=== PATIENT | male | born 1955 | race African-American/Black ===

== ENCOUNTER 2017-08-04 05:19 | Inpatient (IN) | payer OTHER ==
[~2017-08-04] VITALS: Ht 167.6 cm; Wt 81.6 kg
[2017-08-04] MEDS ORDERED: Sodium Chloride 500ML 500 ML IV ONE (05:38)
[2017-08-04 05:45] LABS: BASOPHILS % (AUTO) 0.5 % (0.0-2.0); EOSINOPHILS % (AUTO) 2.3 % (0.0-3.0); HEMATOCRIT 44.6 % (42.0-52.0); HEMOGLOBIN 14.9 G/DL (14.2-18.0); LYMPHOCYTES % (AUTO) 20.1 % (20.0-45.0); MEAN CORPUSCULAR VOLUME 87 FL (80-99); MONOCYTES % (AUTO) 10.5 % (1.0-10.0); NEUTROPHILS % (AUTO) 66.7 % (45.0-75.0); PLATELET COUNT 186 K/UL (150-450); RED BLOOD COUNT 5.11 M/UL (4.70-6.10); RED CELL DISTRIBUTION WIDTH 13.1 % (11.6-14.8); WHITE BLOOD COUNT 6.9 K/UL (4.8-10.8)
[2017-08-04] MEDS ORDERED: Morphine Sulfate 4mg/ml Inj IVP ONE (05:45)
[2017-08-04 05:50] VITALS: BP 134/81
[2017-08-04 05:54] LABS: INR 1.2 (0.9-1.1)
[2017-08-04] MEDS ORDERED: Dicyclomine HCl 10mg/5ml oral soln ORAL ONE (06:00)
[2017-08-04] MEDS ORDERED: Mylanta II UD 30ml ORAL ONE (06:00)
[2017-08-04] MEDS ORDERED: Lidocaine 2% Visc 15ml soln ORAL ONE (06:00)
--- NOTE | 2017-08-04 06:05 | Emergency Room Report ---
History of Present Illness General Chief Complaint: Abdominal Pain Source: Patient (SHANTI DUMAS M.D.) Present Illness HPI 61-year-old male presents ED complaining of abdominal pain times one week. States pain is lower, sharp, 7/10, nonradiating. Also complaining of blood in his stool. Denies chest pain or shortness of breath. Denies fevers or chills. Denies nausea or vomiting. Patient states approximately one month ago he had a endoscopy performed at [facility]. was told that he had a "infection" and was prescribed medications. patient takes aspirin but denies taking any other blood thinners. No other aggravating relieving factors. Denies any other associated symptoms (SHANTI DUMAS M.D.) Allergies: Coded Allergies: BENAZEPRIL (Verified Allergy, Unknown, 08/04/17) LEVOFLOXACIN (Verified Allergy, Unknown, 08/04/17) Patient History Past Medical History: HTN, CHF Past Surgical History: pacemaker Pertinent Family History: none Social History: Denies: smoking, alcohol use, drug use Immunizations: UTD Reviewed Nursing Documentation: PMH: Agreed, PSxH: Agreed (SHANTI DUMAS M.D.) Nursing Documentation-PMH Past Medical History: No History, Except For Hx Cardiac Problems: Yes - CHF Hx Hypertension: Yes Hx Pacemaker: Yes Hx Diabetes: Yes (SHANTI DUMAS M.D.) Review of Systems All Other Systems: negative except mentioned in HPI (SHANTI DUMAS M.D.) Physical Exam Vital Signs Date Time Temp Pulse Resp B/P (MAP) Pulse Ox O2 Delivery O2 Flow Rate FiO2 08/04/17 05:13 99.0 83 16 134/81 99 Room Air Sp02 EP Interpretation: reviewed, normal General Appearance: no apparent distress, alert, GCS 15, non-toxic Head: normocephalic, atraumatic Eyes: bilateral eye normal inspection, bilateral eye PERRL ENT: hearing grossly normal, normal pharynx, no angioedema, normal voice Neck: full range of motion, supple/symm/no masses Respiratory: chest non-tender, lungs clear, normal breath sounds, speaking full sentences Cardiovascular #1: regular rate, rhythm, no edema Cardiovascular #2: 2+ carotid (R), 2+ carotid (L), 2+ radial (R), 2+ radial (L) , 2+ dorsalis pedis (R), 2+ dorsalis pedis (L) Gastrointestinal: normal bowel sounds, soft, non-distended, no guarding, no rebound, tenderness Rectal: deferred Genitourinary: normal inspection, no CVA tenderness Musculoskeletal: back normal, gait/station normal, normal range of motion, non- tender Neurologic: alert, oriented x3, responsive, motor strength/tone normal, sensory intact, speech normal Psychiatric: judgement/insight normal, memory normal, mood/affect normal, no suicidal/homicidal ideation Reflexes: 3+ bicep (R), 3+ bicep (L), 3+ tricep (R), 3+ tricep (L), 3+ knee (R) , 3+ knee (L) Skin: normal color, no rash, warm/dry, well hydrated Lymphatic: no adenopathy (SHANTI DUMAS M.D.) Medical Decision Making Diagnostic Impression: Primary Impression: GI bleed Additional Impression: Abdominal pain ER Course Please defer to the initial note for the history exam and presentation At this time the blood work is appropriate CT imaging shows multiple subacute/acute findings please refer to the report Given the patient's recent procedure given the findings of possible GI bleed Patient is admitted for further inpatient care (ARIAS TAVERAS D.O.) Rhythm Strip Diag. Results EP Interpretation: yes Rate: 78 Rhythm: NSR, no PVC's, no ectopy (ARIAS TAVERAS D.O.) CT/MRI/US Diagnostic Results CT/MRI/US Diagnostic Results : Impression CT abdomen pelvis: Refer to her report for full detail 3 x 2.5 cm complex lesion right kidney mass versus focal pyelonephritis right paranephric stranding no hydronephrosis enlarged prostate diffuse increased burning with relatively decompressed rectosigmoid possible differentials of prostatitis mottled appearance of pelvis consideration for Paget's disease versus metastatic /infiltrative (ARIAS TAVERAS D.O.) Last Vital Signs Date Time Temp Pulse Resp B/P (MAP) Pulse Ox O2 Delivery O2 Flow Rate FiO2 08/04/17 05:13 99.0 83 16 134/81 99 Room Air (SHANTI DUMAS M.D.) Status: improved (ARIAS TAVERAS D.O.) Disposition: ADMITTED INPATIENT Condition: Serious Scripts Unable to Obtain Active Prescriptions or Reported Meds SHANTI DUMAS M.D. Aug 04, 2017 06:05 ARIAS TAVERAS D.O. Aug 04, 2017 08:26
[2017-08-04 06:12] LABS: ANION GAP 5 mmol/L (5-15); BLOOD UREA NITROGEN 18 mg/dL (7-18); CALCIUM 9.7 MG/DL (8.5-10.1); CARBON DIOXIDE 31 MMOL/L (21-32); CHLORIDE 104 MMOL/L (98-107); POTASSIUM 3.4 MMOL/L (3.5-5.1); SODIUM 139 MMOL/L (136-145)
[2017-08-04 06:16] LABS: ALANINE AMINOTRANSFERASE 30 U/L (12-78); ALKALINE PHOSPHATASE 92 U/L (46-116); ASPARTATE AMINO TRANSFERASE 25 U/L (15-37); BILIRUBIN,TOTAL 0.6 MG/DL (0.2-1.0)
[2017-08-04 06:34] LABS: APPEARANCE,URINE CLEAR; BILIRUBIN, URINE NEGATIVE (NEGATIVE); GLUCOSE, URINE (UA) NEGATIVE (NEGATIVE); KETONES,URINE NEGATIVE (NEGATIVE); LEUKOCYTE ESTERASE ,URINE 1+ (NEGATIVE); NITRITE,URINE NEGATIVE (NEGATIVE); PH,URINE 7 (4.5-8.0); PROTEIN,URINE NEGATIVE (NEGATIVE); UROBILINOGEN,URINE NORMAL MG/DL (0.0-1.0)
[2017-08-04 06:48] LABS: COLOR,URINE YELLOW
[2017-08-04 06:50] VITALS: BP 148/76
[2017-08-04 08:07] VITALS: BP 145/70
[2017-08-04] MEDS ORDERED: Zolpidem 5mg tab ORAL PRN (09:00)
[2017-08-04] MEDS ORDERED: Morphine Sulfate 4mg/ml Inj IVP PRN ×2 (09:00)
--- NOTE | 2017-08-04 11:28 | History & Physical ---
History and Physical History & Physicial HP dictated # [id number] JAQUAN BRISENO Aug 04, 2017 11:28
--- NOTE | 2017-08-04 11:31 | Diagnostic Imaging Report ---
Indication: Abdominal pain. Bloody stools. Technique: CT of the abdomen and pelvis utilizing automated exposure control with intravenous contrast. Venous scanning performed. CT dose: Total DLP 808.87 mGycm; CTDI vol 17.93 mGy Comparison: None Findings: Dependent atelectasis noted in the lung bases. There is a 6 mm subpleural nodule in the right lower lobe. Heart size appears within normal limits. Pacemaker partially visualized. Liver, gallbladder, spleen, adrenal glands and pancreas are grossly unremarkable. There is a 3 x 2.5 cm complex lesion in the right kidney which contains low in intermediate attenuation components. There is right perinephric stranding. A subcentimeter stone is noted in the upper pole the right kidney. Some simple renal cysts are noted in the left kidney. There is asymmetric thickening of the right ureter with periureteric stranding on the right. No evidence of hydronephrosis bilaterally. Prostate is heterogeneous and mildly enlarged. Bladder is unremarkable. There is no free intraperitoneal air. No ascites. There is diffuse increased fecal burden with ultimately decompressed rectosigmoid. There is mild asymmetric wall thickening of the rectum, possibly related to proctocolitis however colonoscopy recommended to exclude the possibility of mass in this region. The appendix is located in the right upper quadrant adjacent to the right kidney (series 3 image #20). It is prominent in caliber with its tip measuring approximate 1.1 cm in diameter. Portions of the lumen are filled with air. There may be minimal stranding around the tip of the appendix which is likely from the adjacent right-sided perinephric stranding. Abdominal aorta is normal in caliber with mild atherosclerotic calcification. Small retroperitoneal lymph nodes are noted, likely reactive in etiology. None are pathologically enlarged by imaging size criteria. There are multilevel degenerative changes of the spine. There is a mottled appearance of the pelvic bones with mixed sclerotic and lucent lesions. IMPRESSION: * 2.2 cm complex lesion in the right kidney which may represent inflammation and hemorrhage within a cyst. Superimposed pyelonephritis or underlying neoplasm not excluded. Thickening of the right ureter and perinephric/periureteric stranding on the right. No evidence of hydronephrosis bilaterally. Correlation with urinalysis and follow-up exam recommended. * Nonobstructing right renal stone. * Asymmetric wall thickening of the rectum possibly related to inflammation however mass not excluded. Correlation with colonoscopy recommended. * Prominent appendix in the right upper quadrant measuring up to 1.1 cm diameter, adjacent to the right kidney. Tip of the appendix is adjacent to the right-sided perinephric stranding. Clinical correlation and follow-up exam recommended to exclude the less likely possibility of concurrent appendiceal inflammation. * Mottled appearance of the pelvis which may represent Paget's disease or metastatic/infiltrative process. Correlation with history and bone scan recommended. * Enlarged, heterogeneous prostate. * Possible 6 mm subpleural right lower lobe lung nodule. Follow-up exam recommended to assess stability/resolution. This corresponds with the statrad preliminary report, with minor discrepancy. Study obtained via the emergency department however patient admitted to the hospital at time of dictation of the final report. Findings and further diagnostic recommendations described and the final report discussed with treating RN on 4W, who is to relay information to primary MD. The CT scanner at [facility] is accredited by the [employer] and the scans are performed using protocols designed to limit radiation exposure to as low as reasonably achievable to attain images of sufficient resolution adequate for diagnostic evaluation.
[2017-08-04 13:00] VITALS: BP 141/70
[2017-08-04 16:00] VITALS: BP 153/98
--- NOTE | 2017-08-04 17:15 | History and Physical Report ---
DATE OF ADMISSION: 08/04/2017 CHIEF COMPLAINT: Abdominal pain. HISTORY OF PRESENT ILLNESS: This is a 61-year-old, black male, who had apparently upper endoscopy at [facility] on 07/07/2017. The patient stated that he started having abdominal pain about three to four days ago. Pain was continuous, did change with taking food and finally, he came to the emergency room to be evaluated. He was apparently told that he had some infection and was given four medications. The patient started having abdominal pain, mostly lower abdomen. The patient was also found to have blood in the stool here in the emergency room and was diagnosed with GI bleed. PAST MEDICAL HISTORY: Includes history of congestive heart failure and hypertension. The patient has a pacemaker and has history of diabetes. The patient has a left eye blindness. MEDICATIONS: The patient did not have his medications with him. ALLERGIES: To Levaquin and benazepril, both causing rash. SOCIAL HISTORY: No history of smoking or alcohol abuse. The patient lives at home with son and caregiver. REVIEW OF SYSTEMS: Noncontributory. PHYSICAL EXAMINATION: GENERAL: The patient is a 61-year-old male, in no acute distress. VITAL SIGNS: Blood pressure 134/81, pulse 83, temperature 99 degrees, and respiratory rate 16. HEENT: [place] conjunctivae. Anicteric sclerae. NECK: Supple. LUNGS: Clear to auscultation. HEART: S1 and S2 without murmurs or rubs. ABDOMEN: Soft and nontender. EXTREMITIES: No cyanosis or edema. LABORATORY FINDINGS: The CBC shows WBC of 6.9, hematocrit is 44.6, hemoglobin 14.9, and platelets 186,000. Chemistry panel shows a sodium of 139, potassium 3.4, chloride 104, CO2 31, BUN 18, creatinine 1, and glucose is 135. Lipase is 157. The UA is unremarkable. ASSESSMENT: This is a 61-year-old black male, who is admitted with abdominal pain, some blood in the stool, diagnosed with gastrointestinal bleed. The patient had a recent upper endoscopy and was told he had infection. So, I am assuming he may have had diagnosis of Helicobacter pylori. His hematocrit is normal at this time. So, he does not appear to have a massive gastrointestinal bleed. Rather, he may have some inflammatory bowel disease. He has diabetes and hypertension and status post pacemaker. PLAN: The patient will be hydrated cautiously with IV fluids. The patient will be seen by Dr. Boston for GI consultation. He will be started on PPIs. For his diabetes, he will be on a sliding scale insulin. His blood pressure will be followed closely and his medications will be adjusted. gJ Dickinson M.D. DR: Mehreen JOB#: [id number] CC:
[2017-08-04] MEDS: Imdur 30mg tab ORAL SCH (18:47)
[2017-08-04] MEDS: HydrALAZINE 50mg tab ORAL SCH (18:47)
[2017-08-04 20:00] VITALS: BP 136/88
--- NOTE | 2017-08-04 20:24 | General Progress Note ---
Assessment/Plan Assessment/Plan GI CONSULT Assessment - Poor historian with details and symptoms - c/o abd pain since off of Dexilant (d/c'd due to insurance reasons) - s/o EGD about a month ago (followed by abx for HP) - constipation, per CT - Self reported dark stools, but normal H&H Recommendations - Check stool OB - Laxative trial - BID PPI, to replace Dexilant - follow symptoms and po intake - Need to have a colonoscopy at later date, possibly outpt Subjective Allergies: Coded Allergies: BENAZEPRIL (Verified Allergy, Unknown, 08/04/17) LEVOFLOXACIN (Verified Allergy, Unknown, 08/04/17) Objective Last 24 Hour Vital Signs Date Time Temp Pulse Resp B/P (MAP) Pulse Ox O2 Delivery O2 Flow Rate FiO2 08/04/17 18:47 153/98 08/04/17 18:47 153/98 08/04/17 16:00 98.8 18 153/98 98 Room Air 08/04/17 13:00 98.4 18 141/70 97 Room Air 08/04/17 09:00 98.7 60 18 145/70 98 Room Air 08/04/17 08:07 98.7 60 18 145/70 98 Room Air 08/04/17 06:50 98.7 72 16 148/76 100 Room Air 08/04/17 05:50 98.9 66 16 134/81 99 Room Air 08/04/17 05:13 99.0 83 16 134/81 99 Room Air Intake and Output 08/03/17 08/04/17 19:00 07:00 # Voids 1 Laboratory Tests 08/04/17 05:30: White Blood Count 6.9, Red Blood Count 5.11, Hemoglobin 14.9, Hematocrit 44.6, Mean Corpuscular Volume 87, Mean Corpuscular Hemoglobin 29.1, Mean Corpuscular Hemoglobin Concent 33.3, Red Cell Distribution Width 13.1, Platelet Count 186, Mean Platelet Volume 7.3, Neutrophils (%) (Auto) 66.7, Lymphocytes (%) (Auto) 20.1, Monocytes (%) (Auto) 10.5H, Eosinophils (%) (Auto) 2.3, Basophils (%) ( Auto) 0.5, Prothrombin Time 12.8H, Prothromb Time International Ratio 1.2H, Activated Partial Thromboplast Time 30, Sodium Level 139, Potassium Level 3.4L, Chloride Level 104, Carbon Dioxide Level 31, Anion Gap 5, Blood Urea Nitrogen 18 , Creatinine 1.0, Estimat Glomerular Filtration Rate > 60, Glucose Level 135H, Calcium Level 9.7, Total Bilirubin 0.6, Aspartate Amino Transf (AST/SGOT) 25, Alanine Aminotransferase (ALT/SGPT) 30, Alkaline Phosphatase 92, Total Protein 7.9, Albumin 4.0, Globulin 3.9, Albumin/Globulin Ratio 1.0, Lipase 157 08/04/17 06:00: Urine Color Yellow, Urine Appearance Clear, Urine pH 7, Urine Specific Jay 1.015, Urine Protein Negative, Urine Glucose (UA) Negative, Urine Ketones Negative, Urine Occult Blood Negative, Urine Nitrite Negative, Urine Bilirubin Negative, Urine Urobilinogen Normal, Urine Leukocyte Esterase 1+H, Urine RBC 0- 2H, Urine WBC 2-4, Urine Squamous Epithelial Cells Occasional, Urine Bacteria Occasional Height (Feet): 5 Height (Inches): 6.00 Weight (Pounds): 180 MAGDALENO MAO Aug 04, 2017 20:24
[2017-08-04] MEDS ORDERED: Sorbitol Solution UD 30ml ORAL ONE (20:30)
[2017-08-04] MEDS ORDERED: Terazosin 2mg cap ORAL SCH (21:30)
[2017-08-05 03:40] VITALS: BP 117/70
[2017-08-05 06:30] VITALS: BP 135/79
[2017-08-05] MEDS ORDERED: Sorbitol Solution UD 30ml ORAL ONE (06:30)
[2017-08-05] MEDS: Imdur 30mg tab ORAL SCH (06:34)
[2017-08-05 08:00] VITALS: BP 135/73
[2017-08-05 08:07] LABS: BASOPHILS % (AUTO) 0.9 % (0.0-2.0); EOSINOPHILS % (AUTO) 1.2 % (0.0-3.0); HEMATOCRIT 41.7 % (42.0-52.0); HEMOGLOBIN 14.1 G/DL (14.2-18.0); LYMPHOCYTES % (AUTO) 30.6 % (20.0-45.0); MEAN CORPUSCULAR VOLUME 87 FL (80-99); MONOCYTES % (AUTO) 12.3 % (1.0-10.0); PLATELET COUNT 179 K/UL (150-450); RED BLOOD COUNT 4.78 M/UL (4.70-6.10); RED CELL DISTRIBUTION WIDTH 13.1 % (11.6-14.8); WHITE BLOOD COUNT 7.3 K/UL (4.8-10.8)
[2017-08-05] MEDS: HydrALAZINE 50mg tab ORAL SCH (08:34)
[2017-08-05] MEDS ORDERED: Promethazine/Codeine 5ml UD ORAL PRN (09:00)
[2017-08-05 12:00] VITALS: BP 128/74
--- NOTE | 2017-08-05 14:03 | Consultation ---
Consult Note Assessment/Plan DC dictated # [id number] JAQUAN BRISENO Aug 05, 2017 14:03
--- NOTE | 2017-08-05 15:45 | Consultation ---
DATE OF CONSULTATION: 08/04/2017 GASTROENTEROLOGY CONSULTATION CHIEF COMPLAINT: I was asked to see this patient by Dr. Jg Dickinson for evaluation of abdominal symptoms and dark stools. HISTORY OF PRESENT ILLNESS: The patient is a 61-year-old man who is a poor historian, who comes into the hospital with vague abdominal complaints. He states that he had an endoscopy about a month or month and a half ago at [facility]. He was diagnosed with some type of infection, which presumed to be Helicobacter pylori and was given antibiotics after that. He states that he has been on Dexilant as a medication for many years, but recently this was discontinued due to insurance issues. His abdominal discomfort has been diffuse. He does take an aspirin on a daily basis. He states for the past five or six days, his stools has been black, but the patient baseline BM was actually normal. The patient states he has never had a colonoscopy before. PAST MEDICAL HISTORY: History of hypertension, diabetes, history of eye disorder, COPD. SOCIAL HISTORY: The patient does not smoke or drink alcohol. FAMILY HISTORY: Noncontributory. REVIEW OF SYSTEMS: Otherwise negative. PHYSICAL EXAMINATION: GENERAL: Well developed, well nourished, man, seen in his room. HEENT: Normocephalic and atraumatic. HEENT: Oropharynx is clear. NECK: Supple. CHEST: Clear to auscultation. CARDIOVASCULAR: Revealed regular rate. ABDOMEN: Soft, obese, and tympanitic with good bowel sounds. There is no clear tenderness, organomegaly, or masses. EXTREMITIES: Revealed no edema. LABORATORY AND DIAGNOSTIC DATA: Laboratory data and CT scan were noted. ASSESSMENT: This patient presents with vague abdominal complaints, which appeared to have started when he discontinue the Dexilant. This may be due to acid production and this should be treated empirically at this time with similar doses of proton pump inhibitor. Should his symptoms persist, then further evaluation may be necessary. In addition, the patient does have some degree of fecal loading on x-ray and therefore, laxative trial can be given. He has never had a colonoscopy and therefore colonoscopy should be recommended at some point and this can perhaps be given as an outpatient as necessary. The patient's hematocrit is normal and this makes it less likely that his black stools are actually gastrointestinal bleeding. RECOMMENDATIONS: 1. To follow the patient's symptoms and laboratory test. 2. Laxative trial. 3. Check stool occult blood. 4. Colonoscopy at a later date. Thank you for asking me to participate in the care of this patient. Medardo Boston M.D. DR: Susan JOB#: [id number] CC: ERNESTO
--- NOTE | 2017-08-06 00:20 | General Progress Note ---
Assessment/Plan Assessment/Plan Assessment - Poor historian with details and symptoms - c/o abd pain since off of Dexilant (d/c'd due to insurance reasons) - s/o EGD about a month ago (followed by abx for HP) - constipation, per CT - Self reported dark stools, but normal H&H Recommendations - Check stool OB - Laxative trial - BID PPI, to replace Dexilant - follow symptoms and po intake - Need to have a colonoscopy at later date, possibly outpt Subjective Allergies: Coded Allergies: BENAZEPRIL (Verified Allergy, Unknown, 08/04/17) LEVOFLOXACIN (Verified Allergy, Unknown, 08/04/17) Subjective feels better with PPI abd pain gone tolerating PO advised needs outpatient GI f/u and colonoscopy Objective Last 24 Hour Vital Signs Date Time Temp Pulse Resp B/P (MAP) Pulse Ox O2 Delivery O2 Flow Rate FiO2 08/05/17 12:00 98.8 78 18 128/74 97 08/05/17 08:34 135/73 08/05/17 08:00 98.8 70 18 135/73 97 08/05/17 06:34 135/79 08/05/17 06:30 63 135/79 08/05/17 03:53 Room Air 08/05/17 03:40 97.0 78 20 117/70 98 Room Air Laboratory Tests 08/05/17 07:20: White Blood Count 7.3, Red Blood Count 4.78, Hemoglobin 14.1L, Hematocrit 41.7L , Mean Corpuscular Volume 87, Mean Corpuscular Hemoglobin 29.5, Mean Corpuscular Hemoglobin Concent 33.8, Red Cell Distribution Width 13.1, Platelet Count 179, Mean Platelet Volume 7.4, Neutrophils (%) (Auto) 55.0, Lymphocytes (% ) (Auto) 30.6, Monocytes (%) (Auto) 12.3H, Eosinophils (%) (Auto) 1.2, Basophils (%) (Auto) 0.9 08/05/17 11:00: Stool Occult Blood Negative Height (Feet): 5 Height (Inches): 6.00 Weight (Pounds): 180 Objective WDWN AA man NCAT supple CTA RRR soft NT ND no edema non focal MAGDALENO MAO Aug 06, 2017 00:20
--- NOTE | 2017-08-06 04:15 | Discharge Summary ---
DATE OF ADMISSION: 08/04/2017 DATE OF DISCHARGE: 08/05/2017 CHIEF COMPLAINT: Abdominal pain. HISTORY OF PRESENT ILLNESS: This is a 61-year-old black male, who came to the emergency room for abdominal pain. The patient had also some blood in stools, and diagnosis of gastrointestinal bleed was made, although his hematocrit was stable. HOSPITAL COURSE: The patient was seen by Dr. Boston in Gastrointestinal consultation. His recommendation was to do an outpatient colonoscopy as it was not felt this would be an urgent thing to do in the hospital. Meanwhile, the patient had also no abdominal pain anymore. After admission, he was doing better, so he was sent home in stable condition. DISCHARGE DIAGNOSIS: Abdominal pain with blood in the stool, possibility of inflammatory bowel disease. DISCHARGE MEDICATIONS: Please refer to discharge medication list. Jg Dickinson M.D. DR: TRINA JOB#: [id number] CC: ERNESTO
== END 2017-08-05 14:14 | disposition home or self-care (01) | DRG 379 ==
LOC: EDBD 05:19 → EMR 06:00 → 4W 06:47 → EDBEDREQ 08:04
DX: K92.2 Gastrointestinal hemorrhage, unspecified (principal); I10 Essential (primary) hypertension; E11.9 Type 2 diabetes mellitus without complications; Z95.0 Presence of cardiac pacemaker; Z88.1 Allergy status to other antibiotic agents; Z88.8 Allergy status to other drugs, medicaments and biological substances; J44.9 Chronic obstructive pulmonary disease, unspecified; K58.9 Irritable bowel syndrome, unspecified; H54.62 Unqualified visual loss, left eye, normal vision right eye
CPT/HCPCS: 36415; 74177; 80053; 81003; 82270; 82962; 83690; 85025; 85610; 85730; 86850; 86900; 86901; 99285

== ENCOUNTER 2020-08-03 07:34 | Emergency (ER) | payer BC, OTHER ==
[~2020-08-03] VITALS: Ht 167.6 cm; Wt 79.4 kg
[2020-08-03] MEDS ORDERED: HYDRALAZINE HCL50 MG ORAL (07:39)
[2020-08-03] MEDS ORDERED: ASPIRIN EC81 MG ORAL (07:39)
[2020-08-03] MEDS ORDERED: NITRO0.4 SL (07:39)
[2020-08-03] MEDS ORDERED: VITAMIN D325 MC1 PO (07:39)
[2020-08-03] MEDS ORDERED: HYTRIN10 MG PO (07:39)
[2020-08-03] MEDS ORDERED: AVODART0.5 MG ORAL (07:39)
[2020-08-03] MEDS ORDERED: TRIBENZOR 40-11 EAC1 ORAL (07:39)
[2020-08-03] MEDS ORDERED: JANUVIA100 MG ORAL (07:39)
[2020-08-03] MEDS ORDERED: CARVEDILOL3.125 MG ORAL (07:39)
--- NOTE | 2020-08-03 07:43 | Emergency Room Report ---
History of Present Illness General Chief Complaint: Nausea Source: Patient Present Illness HPI 64-year-old male with history of CAD, pacemaker placement, hypertension, diabetes here with dizziness. Patient says that he awoke with a room spinning sensation and also felt diaphoretic. Takes multiple medications and did not take any this morning. Says that he still feels the sensation but it has improved. Has felt nauseous but is not vomited. No fevers, chills, chest pain, palpitations, shortness of breath, cough, back pain, abdominal pain, nausea, vomiting, diarrhea, dysuria, syncope, presyncope Allergies: Coded Allergies: BENAZEPRIL (Verified Allergy, Unknown, 08/04/17) LEVOFLOXACIN (Verified Allergy, Unknown, 08/04/17) COVID-19 Screening Contact w/high risk pt: No Experienced COVID-19 symptoms?: No COVID-19 Testing performed IMAGE EDITOR: No Nursing Documentation-[facility] Past Medical History: No History, Except For Hx Cardiac Problems: Yes - CHF Hx Hypertension: Yes Hx Pacemaker: Yes Hx Diabetes: Yes Review of Systems All Other Systems: negative except mentioned in HPI Physical Exam Vital Signs Date Time Temp Pulse Resp B/P (MAP) Pulse Ox O2 Delivery O2 Flow Rate FiO2 08/03/20 07:29 97.5 88 18 158/84 (108) 97 Room Air Sp02 EP Interpretation: reviewed, normal General Appearance: no apparent distress, alert, GCS 15, non-toxic Head: normocephalic, atraumatic Eyes: bilateral eye normal inspection, bilateral eye PERRL ENT: hearing grossly normal, normal pharynx, no angioedema, normal voice Neck: full range of motion, supple/symm/no masses Respiratory: chest non-tender, lungs clear, normal breath sounds, speaking full sentences, other - Left upper chest pacemaker in place Cardiovascular #1: regular rate, rhythm, no edema Cardiovascular #2: 2+ carotid (R), 2+ carotid (L), 2+ radial (R), 2+ radial (L), 2+ dorsalis pedis (R), 2+ dorsalis pedis (L) Gastrointestinal: normal bowel sounds, non tender, soft, non-distended, no guarding, no rebound Rectal: deferred Genitourinary: normal inspection, no CVA tenderness Musculoskeletal: back normal, normal range of motion, gait/station normal, non- tender Neurologic: alert, motor strength/tone normal, oriented x3, sensory intact, responsive, speech normal Psychiatric: judgement/insight normal, memory normal, mood/affect normal, no suicidal/homicidal ideation Lymphatic: no adenopathy Medical Decision Making Diagnostic Impression: Primary Impression: Dizziness ER Course EKG: Atrial paced rhythm, no ischemia, intervals WNL. No ectopy Rhythm strip: patient monitored for arrhythmias - no malignant dysrhythmias, runs of PVCs, nor pauses noted Chest x-ray: Dual-chamber pacemaker in place. Normal heart borders. Mild pulmonary vascular congestion. No pleural effusions. No consolidations. No bony abnormalities. No free air under the diaphragm Laboratory Tests Test 08/03/20 07:45 08/03/20 08:00 White Blood Count 7.2 K/UL (4.8-10.8) Red Blood Count 5.03 M/UL (4.70-6.10) Hemoglobin 14.0 G/DL (14.2-18.0) L Hematocrit 43.4 % (42.0-52.0) Mean Corpuscular Volume 86 FL (80-99) Mean Corpuscular Hemoglobin 27.8 PG (27.0-31.0) Mean Corpuscular Hemoglobin Concent 32.2 G/DL (32.0-36.0) Red Cell Distribution Width 14.4 % (11.6-14.8) Platelet Count 170 K/UL (150-450) Mean Platelet Volume 6.8 FL (6.5-10.1) Neutrophils (%) (Auto) 53.8 % (45.0-75.0) Lymphocytes (%) (Auto) 33.5 % (20.0-45.0) Monocytes (%) (Auto) 8.6 % (1.0-10.0) Eosinophils (%) (Auto) 3.2 % (0.0-3.0) H Basophils (%) (Auto) 0.9 % (0.0-2.0) Sodium Level 141 MMOL/L (136-145) Potassium Level 2.9 MMOL/L (3.5-5.1) L Chloride Level 104 MMOL/L (98-107) Carbon Dioxide Level 31 MMOL/L (21-32) Anion Gap 6 mmol/L (5-15) Blood Urea Nitrogen 19 mg/dL (7-18) H Creatinine 1.1 MG/DL (0.55-1.30) Estimated Glomerular Filtration Rate > 60 mL/min (>60) Glucose Level 209 MG/DL (74-106) H Calcium Level 9.0 MG/DL (8.5-10.1) Total Bilirubin 0.4 MG/DL (0.2-1.0) Aspartate Amino Transferase (AST) 21 U/L (15-37) Alanine Aminotransferase (ALT) 23 U/L (12-78) Alkaline Phosphatase 140 U/L (46-116) H Troponin I 0.004 ng/mL (0.000-0.056) Total Protein 7.8 G/DL (6.4-8.2) Albumin 3.8 G/DL (3.4-5.0) Globulin 4.0 g/dL Albumin/Globulin Ratio 0.9 (1.0-2.7) L Serum Alcohol < 3 mg/dL Urine Opiates Screen Negative (NEGATIVE) Urine Barbiturates Screen Negative (NEGATIVE) Phencyclidine (PCP) Screen Negative (NEGATIVE) Urine Amphetamines Screen Negative (NEGATIVE) Urine Benzodiazepines Screen Negative (NEGATIVE) Urine Cocaine Screen Negative (NEGATIVE) Urine Marijuana (THC) Screen Negative (NEGATIVE) 64-year-old male here with dizziness. Patient had normal physical examination including a normal neurologic examination. He was not complaining of any focal neurologic deficits. He was given meclizine and Zofran in the emergency department with complete resolution of his symptoms. Chest x-ray, CBC, CMP, troponin, EKG all completely normal. Patient was not complaining of any chest pain or palpitations or shortness of breath. Pacemaker maintain normal rhythm throughout his stay in the emergency department. Patient was given a prescription for meclizine and Zofran to use as needed. Was told to return to the emergency department if he has any chest pain, palpitations, shortness of breath, syncope, presyncope. He expressed understanding and was discharged. Last Vital Signs Date Time Temp Pulse Resp B/P (MAP) Pulse Ox O2 Delivery O2 Flow Rate FiO2 08/03/20 07:29 97.5 88 18 158/84 (108) 97 Room Air Scripts Meclizine Hcl* (MECLIZINE*) 25 Mg Tablet 25 MG ORAL THREE TIMES A DAY for 5 Days, TAB Prov: Bj Thomas M.D. 08/03/20 Ondansetron Odt* (ZOFRAN ODT*) 8 Mg Tab.rapdis 8 MG ORAL Q6H PRN for Nausea & Vomiting, #12 TAB Prov: Bj Thomas M.D. 08/03/20 Bj Thomas M.D. Aug 03, 2020 07:43
[2020-08-03] MEDS ORDERED: Meclizine 25mg tab ORAL PRN (07:45)
[2020-08-03 07:55] VITALS: BP 158/84
[2020-08-03 08:09] LABS: BASOPHILS % (AUTO) 0.9 % (0.0-2.0); EOSINOPHILS % (AUTO) 3.2 % (0.0-3.0); HEMATOCRIT 43.4 % (42.0-52.0); LYMPHOCYTES % (AUTO) 33.5 % (20.0-45.0); MEAN CORPUSCULAR VOLUME 86 FL (80-99); MONOCYTES % (AUTO) 8.6 % (1.0-10.0); NEUTROPHILS % (AUTO) 53.8 % (45.0-75.0); PLATELET COUNT 170 K/UL (150-450); RED BLOOD COUNT 5.03 M/UL (4.70-6.10); RED CELL DISTRIBUTION WIDTH 14.4 % (11.6-14.8); WHITE BLOOD COUNT 7.2 K/UL (4.8-10.8)
[2020-08-03] MEDS ORDERED: HydrALAZINE 50mg tab ORAL ONE (08:15)
[2020-08-03 08:20] LABS: ANION GAP 6 mmol/L (5-15); BLOOD UREA NITROGEN 19 mg/dL (7-18); CARBON DIOXIDE 31 MMOL/L (21-32); CHLORIDE 104 MMOL/L (98-107); CREATININE 1.1 MG/DL (0.55-1.30); POTASSIUM 2.9 MMOL/L (3.5-5.1); SODIUM 141 MMOL/L (136-145)
[2020-08-03 08:25] LABS: ALANINE AMINOTRANSFERASE 23 U/L (12-78); ALBUMIN 3.8 G/DL (3.4-5.0); ALBUMIN/GLOBULIN RATIO 0.9 (1.0-2.7); ALKALINE PHOSPHATASE 140 U/L (46-116); ASPARTATE AMINO TRANSFERASE 21 U/L (15-37); BILIRUBIN,TOTAL 0.4 MG/DL (0.2-1.0)
[2020-08-03] MEDS ORDERED: MECLIZINE HCL25 MG ORAL (08:35)
[2020-08-03] MEDS ORDERED: ZOFRAN ODT8 MG ORAL (08:35)
[2020-08-03 08:55] VITALS: BP 137/78
--- NOTE | 2020-08-03 15:40 | Diagnostic Imaging Report ---
Indication: Cough Technique: One view of the chest Comparison: none Findings: The heart is mildly enlarged. There is a left chest pacemaker. There is mild bilateral interstitial edema. Pleural spaces are clear. Impression: Cardiomegaly with mild interstitial edema
== END 2020-08-03 08:55 | disposition home or self-care (01) ==
LOC: EDBD 07:34 → EMR 08:55
DX: R42 Dizziness and giddiness (principal); I11.0 Hypertensive heart disease with heart failure; I50.9 Heart failure, unspecified; E11.9 Type 2 diabetes mellitus without complications; Z95.0 Presence of cardiac pacemaker; Z88.8 Allergy status to other drugs, medicaments and biological substances; Z79.899 Other long term (current) drug therapy
CPT/HCPCS: 36415; 71045; 80053; 80307; 84484; 85025; 93005; 96374; 99284; G0480; J2405